=== PATIENT | male | born 1940 | race Caucasian/White ===

== ENCOUNTER 2018-04-03 08:12 | Day surgery (SDC) | payer MEDICARE, BC ==
[2018-04-01 10:42] LABS: BASOPHILS % (AUTO) 0.4 % (0-1); EOSINOPHILS # (AUTO) 0.2 X10'3 (0-0.9); LYMPHOCYTES # (AUTO) 1.3 X10'3 (1.1-4.8); LYMPHOCYTES % (AUTO) 19.4 % (21-51); MEAN CORPUSCULAR HEMOGLOBIN 32.1 PG (27.0-31.0); MEAN CORPUSCULAR VOLUME 94.3 FL (78-98); MEAN PLATELET VOLUME 9.6 FL (7.4-10.4); MONOCYTES # (AUTO) 0.5 X10'3 (0-0.9); MONOCYTES % (AUTO) 6.9 % (2-12); NEUTROPHILS # (AUTO) 4.7 X10'3 (1.8-7.7); NEUTROPHILS % (AUTO) 70.3 % (42-75); PRE OP HEMATOCRIT 36.9 % (42.0-52.0); PRE OP HEMOGLOBIN 12.6 g/dL (14.0-17.9); PRE OP PLATELET COUNT 222 X10'3 (140-440); RED BLOOD COUNT 3.91 X10'6 (4.70-6.10); RED CELL DISTRIBUTION WIDTH 13.1 % (11.5-14.5)
[2018-04-01 10:55] LABS: ALBUMIN 3.2 G/DL (3.4-5.0); ALBUMIN/GLOBULIN RATIO 1.1 (1.1-1.5); ALKALINE PHOSPHATASE 82 IU/L (46-116); BLOOD UREA NITROGEN 22 MG/DL (7-18); BUN/CREATININE RATIO 15.2 (5.4-32.0); CALCIUM 8.7 MG/DL (8.5-10.1); CHLORIDE 110 MMOL/L (99-107); CREATININE 1.45 MG/DL (0.60-1.10); PRE OP ANION GAP 8 (8-16); PRE OP AST 22 U/L (10-37); PRE OP BILIRUB, TOTAL 0.3 MG/DL (0.0-1.0); PRE OP GLUCOSE 121 MG/DL (70-104); PRE OP POTASSIUM 4.5 MMOL/L (3.4-5.1); PRE OP SODIUM 145 MMOL/L (135-145); TOTAL CARBON DIOXIDE 27.3 MMOL/L (24-32); TOTAL PROTEIN 6.2 G/DL (6.4-8.2); eGFR 47 ML/MIN
[2018-04-01 11:04] LABS: PRE OP ALT 29 U/L (30-65)
[~2018-04-03] VITALS: Ht 172.7 cm; Wt 85.3 kg
[~2018-04-03 08:12] MED LIST: ASPI-974 PO; ATOR20TA66 PO; BENA5TAB6 PO; DUTA0.5C40 PO; ESOM40CA30 PO; GLIM1TAB46 PO; LEVO150T PO; METF500T7 PO; MULT1CAP44 PO; NIAC1000 PO; TAMS0.4C32 PO; clindamycin 600mg/D5W 50ml 50 ML IV ONE; famotidine 20mg tablet PO ONE; ringers solution, lacted 1,000 ML IV SCH
[2018-04-03 08:15] VITALS: BP 138/85
[2018-04-03] MEDS ORDERED: BUPIVAcaine/PF 2.5mg/ml (0.25%) 10ml vial ONE (11:07)
[2018-04-03] MEDS ORDERED: LIDOcaine 0.5% (5mg/ml) 50ml vial ONE (11:10)
[2018-04-03] MEDS ORDERED: fentaNYL/PF 50MCG/1 ML 2ML syringe ONE (11:13)
[2018-04-03] MEDS ORDERED: MIDAZolam 5mg/5ml vial ONE (11:13)
[2018-04-03] MEDS ORDERED: ringers solution, lacted 1,000 ML IV SCH (11:36)
[2018-04-03] MEDS ORDERED: ondansetron/PF 4mg/2ml inj IV PRN (11:40)
[2018-04-03] MEDS ORDERED: fentaNYL/PF 50MCG/1 ML 2ML syringe IV PRN ×2 (11:40)
[2018-04-03] MEDS ORDERED: labetalol 20mg/4ml (5mg/ml) syringe IV PRN (11:40)
[2018-04-03] MEDS ORDERED: morphine 4 MG/ML inj SYRINge IV PRN ×2 (11:40)
[2018-04-03] MEDS ORDERED: hydrALAZINE 20mg/ml inj. IV PRN (11:40)
[2018-04-03 11:52] VITALS: BP 163/90
[2018-04-03 12:02] VITALS: BP 147/50
[2018-04-03 12:12] VITALS: BP 138/84
== END 2018-04-03 12:52 | disposition home or self-care (01) ==
LOC: PAS 08:12
PROVIDERS: ATTEND Orthopaedic Surgery Hand Surgery
DX: S68.614A Complete traumatic transphalangeal amputation of right ring finger, initial encounter (principal); I45.2 Bifascicular block; I10 Essential (primary) hypertension; E03.9 Hypothyroidism, unspecified; E11.9 Type 2 diabetes mellitus without complications; N40.0 Benign prostatic hyperplasia without lower urinary tract symptoms; J45.998 Other asthma; Z79.84 Long term (current) use of oral hypoglycemic drugs; Z79.82 Long term (current) use of aspirin; Z90.49 Acquired absence of other specified parts of digestive tract; Z72.89 Other problems related to lifestyle; Z87.891 Personal history of nicotine dependence; Z88.0 Allergy status to penicillin; Z98.890 Other specified postprocedural states; Z79.899 Other long term (current) drug therapy; X58.XXXA Exposure to other specified factors, initial encounter; Y93.89 Activity, other specified; Y92.89 Other specified places as the place of occurrence of the external cause; Y99.8 Other external cause status
CPT/HCPCS: 26951; 36415; 80053; 82948; 85025; 93005; A6449; J2001; J2250; J3010; J3490; J7120; A7000